=== PATIENT | male | born 1965 | race Caucasian/White ===

== ENCOUNTER → 2022-05-11 15:10 | Outpatient (CLI) | payer BC, SELFPAY ==
--- NOTE | ~2022-05-11 | US_ITS ---
EXAMINATION: US thyroid DATE: 05/11/2022 15:21 INDICATION: Nontoxic goiter. TECHNIQUE: Multiple ultrasound images of the thyroid were obtained. COMPARISON: None. FINDINGS: The right thyroid lobe measures 5.7 x 2.3 x 1.5 cm. The left thyroid lobe measures 5.5 x 2.1 x 1.5 c m. There is normal echotexture and echogenicity throughout the thyroid gland. No discrete nodules id entified. Normal vascular flow is present. IMPRESSION: Normal thyroid ultrasound findings. Reviewed, dictated and finalized at location K.
== END ==
PROVIDERS: Visit Provider Physician Assistant Medical
DX: E04.9 Nontoxic goiter, unspecified (principal)
CPT/HCPCS: 76536

== ENCOUNTER 2022-08-30 13:26 | Emergency (ER) | payer BC, SELFPAY ==
[2022-08-30 14:30] VITALS: BP 151/78; PULSE 68; RESP 18; TEMP 36.2; O2SAT 99
--- NOTE | 2022-08-30 15:12 | ED.EAR ---
HPI - Ear Problem General Chief complaint: Ear Stated complaint: Left Ear Irritation Time Seen by Provider: 08/30/22 15:12 Source: patient Mode of arrival: ambulatory Limitations: no limitations History of Present Illness HPI Narrative: 49-year-old male presented for concern of bilateral ear wax impaction. He endorses muffled hearing bilaterally. He denies tinnitus, dizziness, nausea, fevers or chills. Denies recent upper respiratory illness. He endorses recurrent excessive earwax buildup and has removal about every 6 months. MD Complaint: ear pain Related Data Allergies Allergy/AdvReac Type Severity Reaction Status Date / Time No Known Allergies Allergy Verified 08/30/22 14:25 Review of Systems Review of Systems: CONSTITUTIONAL: Denies malaise, chills, or fever. EYES: Denies visual changes, redness, or discharge. ENT: Denies rhinorrhea, congestion, sinus pain, and sore throat. CARDIOVASCULAR: Denies chest pain, palpitations, or edema. RESPIRATORY: Denies cough or dyspnea. GASTROINTESTINAL: Denies abdominal pain, nausea, vomiting, diarrhea SKIN: Denies rash or itching. MUSCULOSKELETAL: Denies myalgia. NEUROLOGIC: Denies headache. All systems reviewed & are unremarkable except as noted in HPI and below PMFSH Past Medical History Medical History BMI 32.0-32.9,adult Essential (primary) hypertension Screening for lipid disorders Screening for prostate cancer Surgical History Surgical History History of total left hip replacement Family History Family History Father Hypertension Malignant neoplasm of prostate Mother Hypertension Sibling Hypertension Social History Social History Smoking status: Never smoker Alcohol intake: current Comments At time of signature, agree with nursing past medical, surgical, social and family history. There is no relevant family history pertinent to the presenting complaint Exam Narrative: GENERAL: Well-appearing EYES: conjunctivae clear ENT: Nares clear. Mucous membranes moist. Unable to visualize TMs due to impacted cerumen bilaterally; no tragal tenderness. Oropharynx not erythematous without lesions. Tonsils not enlarged and without exudate, no drooling, no hoarseness, no trismus, uvula midline. NECK: Supple. No lymphadenopathy CHEST: Clear to auscultation, breath sounds equal. HEART: Regular rate and rhythm. No murmur heard. SKIN: Warm, dry, no rash. NEURO: Alert and oriented x3. PSYCH: Normal mood and affect Course Course Emergency Course: Patient is aware of diagnosis, understands and agrees to treatment plan. Anticipatory guidance given. Patient agrees to follow-up as directed and is aware of reasons to seek care at the emergency department. Portions of this record may have been created with voice recognition software Level of Care: Express Care Visit Vital Signs Vital signs: Vital Signs Temperature 97.1 F L 08/30/22 14:30 Pulse Rate 68 08/30/22 14:30 Respiratory Rate 18 08/30/22 14:30 Blood Pressure 151/78 H 08/30/22 14:30 Pulse Oximetry 99 08/30/22 14:30 Oxygen Delivery Room Air 08/30/22 14:30 Temperature 97.1 F L 08/30/22 14:30 Pulse Rate 68 08/30/22 14:30 Respiratory Rate 18 08/30/22 14:30 Blood Pressure 151/78 H 08/30/22 14:30 Pulse Oximetry 99 08/30/22 14:30 Oxygen Delivery Room Air 08/30/22 14:30 Reviewed Procedures Ear Wax Removal Both Ears: Ear Wax Removal Date: 08/30/22 Cerumenolytic Used: other (Equal parts hydrogen peroxide and warm water) Results: Re-examined: cerumen removed completely (Right) and some cerumen remains (Left) TM Examination: TM(s) intact, normal appearance (Right) Ear Canal Exam: atraumatic (bilaterally) Yanelis
== END 2022-08-30 15:48 | disposition home or self-care (01) ==
PROVIDERS: Emergency Provider Nurse Practitioner Family; PCP Family Medicine
DX: H61.23 Impacted cerumen, bilateral (principal); I10 Essential (primary) hypertension; Z96.642 Presence of left artificial hip joint
CPT/HCPCS: 69210; 99212; A9270; G0463

== ENCOUNTER 2023-05-09 10:11 | Emergency (ER) | payer BC, SELFPAY ==
[2023-05-09 10:18] VITALS: BP 143/76; PULSE 82; RESP 16; TEMP 37.1; O2SAT 98
--- NOTE | 2023-05-09 10:54 | ED.EAR ---
HPI - Ear Problem General Chief complaint: Ear Stated complaint: Ears Irritation Time Seen by Provider: 05/09/23 10:50 Source: patient, RN notes reviewed and old records reviewed Mode of arrival: ambulatory Limitations: no limitations History of Present Illness HPI Narrative: 58 year old male who presents to [facility] care with complaints of decreased hearing and ears feeling clogged bilaterally for one week duration. Patient reports that he has had problems with ear wax and ears feeling clogged in the past and has had to have ears cleaned out. Patient reports that he has not tried Debrox ear drops to keep wax softened.Patient reports no pain to ears, sinus congestions or any other symptoms of URI. MD Complaint: decreased hearing and other (ears feel clogged) Location: bilateral Duration: constant Discharge from ear: Reports no Treatment prior to arrival: none Related Data Allergies Allergy/AdvReac Type Severity Reaction Status Date / Time No Known Allergies Allergy Verified 05/09/23 10:18 Review of Systems Review of Systems: CONSTITUTIONAL: Denies fever, chills, or sweats. EYES: Denies visual changes, redness, or discharge. ENT: Denies rhinorrhea, congestion, sore throat, or otalgia reports bilateral ears feel clogged with decreased hearing CARDIOVASCULAR: Denies chest pain, palpitations, or edema. RESPIRATORY: Denies cough or dyspnea. GASTROINTESTINAL: Denies abdominal pain, nausea, vomiting, or diarrhea. GENITOURINARY: Denies dysuria or hematuria. SKIN: Denies rash or itching. MUSCULOSKELETAL: Denies back pain, joint pain, or myalgia. NEUROLOGIC: Denies headache, numbness, or weakness. PSYCHIATRIC: Denies anxiety or depression. All systems reviewed & are unremarkable except as noted in HPI and below PMFSH Past Medical History Medical History BMI 32.0-32.9,adult Essential (primary) hypertension Screening for lipid disorders Screening for prostate cancer Surgical History Surgical History History of total left hip replacement Family History Family History Father Hypertension Malignant neoplasm of prostate Mother Hypertension Sibling Hypertension Social History Social History Smoking status: Never smoker Alcohol intake: current Comments At time of signature, agree with nursing past medical, surgical, social and family history. There is no relevant family history pertinent to the presenting complaint Exam Narrative: GENERAL: Well-appearing, well-nourished, and in no acute distress. HEAD: Normocephalic, atraumatic. EYES: PERRLA and EOMI. ENT: Nares clear, no rhinorrhea or epistaxis. Mucous membranes moist.TM's unable to view due to impacted ear wax till ears irrigated with TM's normal, throat pink with no swelling NECK: Supple. no lymphadenopathy CHEST: Clear to auscultation. No respiratory distress. SAO2 98% on room air HEART: Regular rate and rhythm. No murmur heard. Normal peripheral pulses. ABDOMEN: Soft, nontender, nondistended, normal active bowel sounds. EXTREMITIES: Normal range of motion. No edema. SKIN: Warm, dry, no rash. NEURO: No focal deficits. Alert and oriented x3. Course Course Emergency Course: Patient is aware of diagnosis, understands and agrees to treatment plan.? Anticipatory guidance given.? Patient agrees to follow-up as directed and is aware of reasons to seek care at the emergency department. Portions of this record may have been created with voice recognition software Level of Care: Express Care Visit Vital Signs Vital signs: Vital Signs Temperature 37.1 C 05/09/23 10:18 Pulse Rate 82 05/09/23 10:18 Respiratory Rate 16 05/09/23 10:18 Blood Pressure 143/76 H 05/09/23 10:18 Pulse Oximetry 98 05/09/23 10:18 Oxygen Delivery R
== END 2023-05-09 11:10 | disposition home or self-care (01) ==
PROVIDERS: Emergency Provider Registered Nurse; PCP Family Medicine
DX: H61.23 Impacted cerumen, bilateral (principal); I10 Essential (primary) hypertension
CPT/HCPCS: 69209; 99212; A9270; G0463

== ENCOUNTER 2023-09-28 08:05 | Emergency (ER) | payer BC, SELFPAY ==
[2023-09-28 08:17] VITALS: BP 152/83; PULSE 69; RESP 16; TEMP 37.7; O2SAT 99
--- NOTE | 2023-09-28 08:17 | ED.EAR ---
HPI - Ear Problem General Stated complaint: ear issue Time Seen by Provider: 09/28/23 08:17 Source: patient Mode of arrival: ambulatory Limitations: no limitations History of Present Illness HPI Narrative: 58-year-old male presents with complaint of bilateral muffled hearing. Patient reports every 4-6 months he has to be seen to have ears irrigated. Denies pain. All systems reviewed and negative except as noted above. Related Data Allergies Allergy/AdvReac Type Severity Reaction Status Date / Time No Known Allergies Allergy Verified 09/28/23 08:29 Review of Systems Review of Systems: CONSTITUTIONAL: Denies fever, chills, or sweats. EYES: Denies visual changes, redness, or discharge. ENT: Denies rhinorrhea, congestion, sore throat, or otalgia. Reports decreased hearing to bilateral ears. CARDIOVASCULAR: Denies chest pain, palpitations, or edema. RESPIRATORY: Denies cough or dyspnea. GASTROINTESTINAL: Denies abdominal pain, nausea, vomiting, or diarrhea. GENITOURINARY: Denies dysuria or hematuria. SKIN: Denies rash or itching. MUSCULOSKELETAL: Denies back pain, joint pain, or myalgia. NEUROLOGIC: Denies headache, numbness, or weakness. PSYCHIATRIC: Denies anxiety or depression. All other systems reviewed are negative, except as documented in HPI. PMFSH Past Medical History Medical History BMI 32.0-32.9,adult Essential (primary) hypertension Screening for lipid disorders Screening for prostate cancer Surgical History Surgical History History of total left hip replacement Family History Family History Father Hypertension Malignant neoplasm of prostate Mother Hypertension Sibling Hypertension Social History Social History Smoking status: Never smoker Alcohol intake: current Comments At time of signature, agree with nursing past medical, surgical, social and family history. There is no relevant family history pertinent to the presenting complaint. Exam Narrative: GENERAL: This is a well-nourished, well-developed patient, in no apparent distress. HEAD: normocephalic, atraumatic. EYES: PERRL. Sclera clear/white. Vision is grossly intact. EARS: External ears normal, Bilateral ear canals impacted with soft cerumen, normal after irrigation., TMs normal without perforation. Hearing grossly intact. NOSE: External nose normal NECK: Neck supple, non-tender without lymphadenopathy, masses or thyromegaly. CARDIOVASCULAR: Regular rate and rhythm without murmurs, gallops, or rubs. RESPIRATORY: Clear to auscultation. Breath sounds equal bilaterally. No wheezes, rales, or rhonchi. SKIN: warm, Dry, intact with no suspicious lesions or rash, good texture and turgor. NEURO: awake, alert, and oriented to person, place and time. There were no obvious focal neurologic abnormalities. EXTREMITIES: No joint tenderness, effusion, or edema noted. Course Course Level of Care: Express Care Visit Vital Signs Vital signs: Reviewed Procedures Ear Wax Removal Both Ears: Ear Wax Removal Date: 09/28/23 Ear Wax Removal Time: 08:25 Cerumenolytic Used: other (warm water) Results: Re-examined: cerumen removed completely TM Examination: TM(s) intact, normal appearance Ear Canal Exam: atraumatic Patient Tolerated Procedure: well Complications: no problems Technique: ear canal irrigated and ear canal curetted Medical Decision Making MDM Narrative Medical decision making narrative: Patient is aware of diagnosis, understands and agrees to treatment plan. Anticipatory guidance given. Patient agrees to follow-up as directed and is aware of reasons to seek care at the emergency department. Portions of this record may have been crea
== END 2023-09-28 08:49 | disposition home or self-care (01) ==
PROVIDERS: Emergency Provider Nurse Practitioner Family; PCP Family Medicine
DX: H61.23 Impacted cerumen, bilateral (principal); I10 Essential (primary) hypertension
CPT/HCPCS: 69210; 99212; G0463

== ENCOUNTER 2023-10-24 08:02 | Emergency (ER) | payer BC, SELFPAY ==
[2023-10-24 08:19] VITALS: BP 139/81; PULSE 81; RESP 16; TEMP 36.8; O2SAT 97
--- NOTE | 2023-10-24 08:32 | ED.EAR ---
HPI - Ear Problem General Chief complaint: Ear Stated complaint: Right Ear Irritation Source: patient Mode of arrival: ambulatory Limitations: no limitations History of Present Illness HPI Narrative: Patient presents for evaluation of right ear discomfort for the last week. Symptoms started after a flight earlier in the month. He reports muffled hearing on the right side. He denies any tinnitus or drainage from the ear. He has a history of cerumen impaction and is wondering whether his symptoms are related to that. He does not smoke. Related Data Allergies Allergy/AdvReac Type Severity Reaction Status Date / Time No Known Allergies Allergy Verified 10/24/23 08:16 Review of Systems Review of Systems: CONSTITUTIONAL: Denies fever, chills, or sweats. EYES: Denies visual changes, redness, or discharge. ENT: Reports right ear pain and muffled hearing on the right. Denies any tinnitus or drainage from the ears CARDIOVASCULAR: Denies chest pain, palpitations, or edema. RESPIRATORY: Denies cough or dyspnea. GASTROINTESTINAL: Denies abdominal pain, nausea, vomiting, or diarrhea. GENITOURINARY: Denies dysuria or hematuria. SKIN: Denies rash or itching. MUSCULOSKELETAL: Denies back pain, joint pain, or myalgia. NEUROLOGIC: Denies headache, numbness, dizziness, or weakness. PSYCHIATRIC: Denies anxiety or depression. PMFSH Past Medical History Medical History BMI 32.0-32.9,adult Essential (primary) hypertension Screening for lipid disorders Screening for prostate cancer Surgical History Surgical History History of total left hip replacement Family History Family History Father Hypertension Malignant neoplasm of prostate Mother Hypertension Sibling Hypertension Social History Social History Smoking status: Never smoker Alcohol intake: current Substance use: never Gender identity (if verbalized by the patient): Male Sexual Orientation (if Verbalized by the Patient): Straight or Heterosexual Spiritual care concerns: No Exam Narrative: GENERAL: Well-appearing, well-nourished, and in no acute distress. HEAD: Normocephalic, atraumatic. EYES: PERRLA and EOMI. ENT: Nares clear, no rhinorrhea or epistaxis. Mucous membranes moist. Oropharynx without tonsillar hypertrophy exudate or other lesions. Bilateral TMs pearly villalobos nonbulging. there is erythema in the right ear canal. There is also an area of swelling in the right ear canal extending from 4-7 o'clock. NECK: Supple. No adenopathy or masses. No carotid bruits or JVD CHEST: Clear to auscultation. No respiratory distress. No wheezes rales or rhonchi HEART: Regular rate and rhythm. No murmur heard. Normal peripheral pulses. ABDOMEN: Soft, nontender, nondistended, normal active bowel sounds. EXTREMITIES: Normal range of motion. No edema. SKIN: Warm, dry, no rash. NEURO: No focal deficits. Alert and oriented x3. PSYCH: Normal mood and affect. Course Course Emergency Course: This is a 58-year-old male who presented for evaluation of right ear discomfort and muffled hearing. He appears to have a small abscess in the right ear canal. Opted to treat with doxycycline as it would cover for pathogens associated with otitis media as well as many skin pathogens. Will also dc with ofloxacin. He should follow up with ENT. Go to the ER for worsening symptoms. Pt in agreement with plan of care. Level of Care: Express Care Visit Vital Signs Vital signs: Vital Signs Temperature 36.8 C 10/24/23 08:19 Pulse Rate 81 10/24/23 08:19 Respiratory Rate 16 10/24/23 08:19 Blood Pressure 139/81 10/24/23 08:19 Pulse Oximetry 97 10/24/23 08:19 Temperature 36.8 C 10/24/23 08:19 Pulse Rate 81
== END 2023-10-24 08:40 | disposition home or self-care (01) ==
PROVIDERS: Emergency Provider Nurse Practitioner; PCP Family Medicine
DX: H60.01 Abscess of right external ear (principal); I10 Essential (primary) hypertension; Z96.642 Presence of left artificial hip joint
CPT/HCPCS: 99213; G0463

== ENCOUNTER 2024-03-01 18:04 | Emergency (ER) | payer BC, SELFPAY ==
[2024-03-01 18:11] VITALS: BP 133/78; PULSE 58; RESP 14; TEMP 36.6; O2SAT 98
--- NOTE | 2024-03-01 18:54 | ED.EAR ---
HPI - Ear Problem General Chief complaint: Ear Stated complaint: right ear blocked up Time Seen by Provider: 03/01/24 18:05 Source: patient Mode of arrival: ambulatory Limitations: no limitations History of Present Illness HPI Narrative: Pj is a 59-year-old male patient presenting to clinic today with complaints of bilateral cerumen impaction. He feels as though both her ears are clogged up the right greater than the left. Denies any other concerns Related Data Allergies Allergy/AdvReac Type Severity Reaction Status Date / Time No Known Allergies Allergy Verified 10/24/23 08:16 Review of Systems Review of Systems: Pertinent positives per HPI. Patient denies any fever, chills, rash, headache, visual changes, dizziness, cough, runny nose, sore throat, shortness of breath, chest pain, palpitations, nausea, vomiting, diarrhea, constipation, abdominal pain, or any urinary issues. [facility] Past Medical History Medical History BMI 32.0-32.9,adult Essential (primary) hypertension Screening for lipid disorders Screening for prostate cancer Surgical History Surgical History History of total left hip replacement Family History Family History Father Hypertension Malignant neoplasm of prostate Mother Hypertension Sibling Hypertension Social History Social History Smoking status: Never smoker Alcohol intake: current Substance use: never Gender identity (if verbalized by the patient): Male Sexual Orientation (if Verbalized by the Patient): Straight or Heterosexual Spiritual care concerns: No Comments At the time of my signature, I reviewed and agree with the nursing past medical, surgical, social, and family history. There is no relevant family history pertinent to the patient complaint. Course Course Emergency Course: Portions of this record may have been created with voice recognition software. Level of Care: Express Care Visit Vital Signs Vital signs: Vital Signs Temperature 36.6 C 03/01/24 18:11 Pulse Rate 58 L 03/01/24 18:11 Respiratory Rate 14 03/01/24 18:11 Blood Pressure 133/78 03/01/24 18:11 Pulse Oximetry 98 03/01/24 18:11 Oxygen Delivery Room Air 03/01/24 18:11 Temperature 36.6 C 03/01/24 18:11 Pulse Rate 58 L 03/01/24 18:11 Respiratory Rate 14 03/01/24 18:11 Blood Pressure 133/78 03/01/24 18:11 Pulse Oximetry 98 03/01/24 18:11 Oxygen Delivery Room Air 03/01/24 18:11 Vital signs reviewed Procedures Ear Wax Removal Both Ears: Ear Wax Removal Date: 03/01/24 Results: Re-examined: cerumen removed completely TM Examination: TM(s) intact, normal appearance Ear Canal Exam: atraumatic Patient Tolerated Procedure: well and no complications Complications: no problems Technique: ear canal irrigated and ear canal curetted Additional Comments: Verbal consent obtained for ear lavage. Risk and benefits explained to patient and they voiced understanding. A mixture of half warm water and half peroxide was used to irrigate ear canals. An lighted ear curette was then used to remove the cerumen from the outer external canal of ears. Cerumen was successfully removed from ear canals. Patient tolerated well. Medical Decision Making Vital Signs Vital Signs: Vital Signs Temperature 36.6 C 03/01/24 18:11 Pulse Rate 58 L 03/01/24 18:11 Respiratory Rate 14 03/01/24 18:11 Blood Pressure 133/78 03/01/24 18:11 Pulse Oximetry 98 03/01/24 18:11 Oxygen Delivery Room Air 03/01/24 18:11 Temperature 36.6 C 03/01/24 18:11 Pulse Rate 58 L 03/01/24 18:11 Respiratory Rate 14 03/01/24 18:11 Blood Pressure 133/78 03/01/24 18:11 Pulse Oximetry 98
== END 2024-03-01 19:00 | disposition home or self-care (01) ==
PROVIDERS: Emergency Provider Nurse Practitioner Family; PCP Family Medicine
DX: H61.23 Impacted cerumen, bilateral (principal); I10 Essential (primary) hypertension
CPT/HCPCS: 69210; 99212; G0463

== ENCOUNTER 2024-07-31 17:33 | Emergency (ER) | payer BC, SELFPAY ==
[2024-07-31 17:42] VITALS: BP 131/76; PULSE 75; RESP 16; TEMP 36.6; O2SAT 98
--- NOTE | 2024-07-31 17:45 | ED_ITS ---
HPI - Ear Problem General Chief complaint: Ear Stated complaint: ears feel blocked Time Seen by Provider: 07/31/24 17:37 Source: patient Mode of arrival: ambulatory Limitations: no limitations History of Present Illness HPI Narrative: Patient is a 59 year old male who presents with bilateral ear fullness, right worse than left. Patient states he normally has to get his ears cleaned out every 6 months. Denies any congestion, sore throat, cough. States he does not use ear buds, hearing aids or Q-tips. MD Complaint: ear pain Related Data Allergies Allergy/AdvReac Type Severity Reaction Status Date / Time No Known Allergies Allergy Verified 07/31/24 17:42 Review of Systems Review of Systems: All systems reviewed & are unremarkable except as noted in HPI and below Constitutional: Constitutional: Denies body ache(s), Denies chills, Denies fever(s), Denies headache(s) and Denies malaise Eyes: Eyes: Denies blurry vision, Denies eye discharge and Denies irritation ENT: Reports otalgia, Denies headache(s), Denies nasal congestion, Denies nasal discharge and Denies sore throat Cardiovascular: Cardiovascular: Denies chest pain, Denies edema, Denies palpitations and Denies dyspnea on exertion Respiratory: Respiratory: Denies cough and Denies dyspnea on exertion Gastrointestinal: Gastrointestinal: Denies abdominal pain, Denies diarrhea, Denies nausea and Denies vomiting Musculoskeletal: Musculoskeletal: Denies back pain, Denies arthralgias and Denies muscle weakness Integumentary/Breasts: Skin/Breast: Denies pruritus and Denies rash Neurologic: Denies headache(s) Psychiatric: Psychiatric: Reports no additional psychiatric complaints Endocrine: Endocrine: Denies palpitations PMFSH Past Medical History Medical History BMI 32.0-32.9,adult Essential (primary) hypertension Screening for colon cancer Screening for lipid disorders Screening for prostate cancer Surgical History Surgical History History of total left hip replacement Family History Family History Father Hypertension Malignant neoplasm of prostate Mother Hypertension Sibling Hypertension Social History Social History Smoking status: Never smoker Alcohol intake: current Drinks per week: 6 Alcohol use details: DRINKS Substance use: never Substance use type: does not use Do You Feel Safe in your Home?: Yes Lack of Transportation: No Lack of Food: Never True Current Housing: I Have Housing Concerned About Future Housing: No Difficulty Paying Gas/Electric Bills: No Difficulty Paying for Meds: No Currently Unemployed: No Difficulty w/ Childcare or Family Care: No Living arrangements: with family Gender identity (if verbalized by the patient): Male Sexual Orientation (if Verbalized by the Patient): Straight or Heterosexual Spiritual care concerns: No Comments At time of signature, agree with nursing past medical, surgical, social and family history. There is no relevant family history pertinent to the presenting complaint? Exam Const: General: cooperative, healthy appearing, no acute distress and well nourished Nutritional Appearance: well nourished Orientation/consciou sness: patient oriented x3 Limitations: no limitations HENMT: Head: normal to inspection, normocephalic and atraumatic Ears: hearing grossly normal bilaterally, EAC's normal, no periauricular adenopathy and TM abnormal obstructed by cerumen bilateral Face/Nose/Sinus: Normal external nose present, Normal nares present, Normal nasal mucous membranes and turbinates present, No nasal discharge present, normal facial exam and sinuses nontender Face and sinus: normal facial exam and sinuses nontender Mouth: Yes Normal oral and palatal mucosa present, Yes lip normal, Yes tongue normal and Yes moist mucous membranes Throat: posterior oropharynx normal, tonsils normal and uvula midline Eyes: General: appearance normal, both eyes and all related structures Alignment and Position: alignment normal and position normal Eyelids: eyelids normal Pupils: Equal, round and reactive pupils present EOM: EOMs intact bilaterally Neck: Neck: normal visual inspection, full ROM, no lymphadenopathy and supple Chest: Chest palpation & inspection: normal inspection of the chest Resp: Effort & Inspection: normal respiratory effort and able to speak in complete sentences Auscultation: clear to auscultation bilaterally, no crackles, no rales, no rhonchi and no wheezes Cardio: Rate: regular rate Rhythm: regular rhythm Heart sounds: S1 normal heart sound present and S2 normal heart sound present Skin: General skin exam: normal color and no rashes or lesions noted Neuro: General: patient oriented x3 and moves all extremities Cranial nerves: Yes Equal, round and reactive pupils present Cognition (Neuro): normal cognition Speech: normal speech Gait exam (Neuro): Normal gait present Extrem: General: normal to inspection and full ROM Psych: Appearance: grossly normal and well kempt Mental Status: mental status grossly normal Speech and movement: Normal speech and movement present Course Course Emergency Course: Patient is aware of diagnosis, understands and agrees to treatment plan.? Anticipatory guidance given.? Patient agrees to follow-up as directed and is aware of reasons to seek care at the emergency department.? Portions of this record may have been created with voice recognition software? Level of Care: Express Care Visit Vital Signs Vital signs: Vital Signs Temperature 36.6 C 07/31/24 17:42 Pulse Rate 75 07/31/24 17:42 Respiratory Rate 16 07/31/24 17:42 Blood Pressure 131/76 07/31/24 17:42 Pulse Oximetry 98 07/31/24 17:42 Temperature 36.6 C 07/31/24 17:42 Pulse Rate 75 07/31/24 17:42 Respiratory Rate 16 07/31/24 17:42 Blood Pressure 131/76 07/31/24 17:42 Pulse Oximetry 98 07/31/24 17:42 Reviewed Procedures Ear Wax Removal Both Ears: Ear Wax Removal Date: 07/31/24 Ear Wax Removal Time: 18:00 Results: Re-examined: cerumen removed completely TM Examination: TM(s) intact, normal appearance Ear Canal Exam: atraumatic Patient Tolerated Procedure: well and no complications Complications: no problems and pain Technique: ear canal irrigated and ear canal curetted Additional Comments: Procedure explained to patient. Verbal consent obtained. Large amounts of wax removed. Non remain. Ear canal irritated but no drainage. Medical Decision Making MDM Narrative Medical decision making narrative: Discharge instructions reviewed with patient, as well as provided in writing per nursing staff. The instructions also include specific and strict return/GO TO THE ER as well as f/u information. All questions have been answered, and the patient deny any further questions with discharge and discharge plan. Differential diagnosis considered: Olguin virus, strep pharyngitis, allergic rhinitis, upper respiratory tract infection, sinusitis, rhinosinusitis, nasopharyngitis. viral pharyngitis, otitis media, otitis externa, otitis effusion, foreign body, cerumen impaction, viral syndrome, and influenza.? Exam findings show no acute concerns or changes; patient is non-toxic appearing and is in no distress.? Patient is appropriate for outpatient treatment and follow- up.? Medical Records Medical records reviewed: Yes I reviewed the external patient's medical records. Vital Signs Vital Signs: Vital Signs Temperature 36.6 C 07/31/24 17:42 Pulse Rate 75 07/31/24 17:42 Respiratory Rate 16 07/31/24 17:42 Blood Pressure 131/76 07/31/24 17:42 Pulse Oximetry 98 07/31/24 17:42 Temperature 36.6 C 07/31/24 17:42 Pulse Rate 75 07/31/24 17:42 Respiratory Rate 16 07/31/24 17:42 Blood Pressure 131/76 07/31/24 17:42 Pulse Oximetry 98 07/31/24 17:42 Discharge Plan Discharge Clinical Impression: Cerumen impaction Qualifiers: Laterality: bilateral Qualified Code(s): H61.23 - Impacted cerumen, bilateral Otitis externa Qualifiers: Otitis externa type: unspecified type Chronicity: acute Laterality: bilateral Qualified Code(s): H60.503 - Unspecified acute noninfective otitis externa, bilateral Patient Disposition: Home, Self-Care Condition: Stable Instructions: Carbamide Peroxide (Into the ear), Swimmer's Ear (GEN) Additional Instructions: -Ear drops as directed for 7-10 days until the pain and swelling are gone. -When administer drug into the affected ear; make sure to lay down with the affected ear facing upward, message the ear canal to help the drops reach the medial end of the canal, then remain in that position for at least 5 minutes. -Avoid using cotton tipped applicator for ears cleaning -Avoid exposing swimming or exposing the affected ear to water during the treatment period Take or alternate tylenol or ibuprofen every 4 - 6 hours if needed for pain. Follow up with primary care provider if condition is not improving in 7 days or sooner if there is new concern. Prescriptions: New ofloxacin 0.3 % drops 5 drp EACH EAR Q12H 7 Days Qty: 10 0RF No Action lisinopril-hydrochlorothiazide 20-12.5 mg tablet 1 tablet PO DAILY Qty: 90 3RF rosuvastatin 20 mg tablet 20 mg PO DAILY Qty: 90 1RF Follow-up/Referrals: Kal Clay MD [Primary Care Provider] - 3 Days Time of Disposition: 18:11
== END 2024-07-31 18:12 | disposition home or self-care (01) ==
PROVIDERS: Emergency Provider Nurse Practitioner Family; PCP Family Medicine
DX: H61.23 Impacted cerumen, bilateral (principal); H60.503 Unspecified acute noninfective otitis externa, bilateral; I10 Essential (primary) hypertension; Z96.642 Presence of left artificial hip joint
CPT/HCPCS: 69210; 99213; G0463

== ENCOUNTER 2024-08-07 01:41 | Day surgery (SDC) | payer BC, SELFPAY ==
[2024-07-28 11:34] VITALS: BMI 32.2
[2024-08-07 07:47] VITALS: BP 149/76; PULSE 72; RESP 18; TEMP 35.9; O2SAT 99; BMI 31.4
[2024-08-07] MEDS: LACTATED RINGERS 1,000 ML 150 ML IV CONT (08:03)
--- NOTE | 2024-08-07 08:08 | P.PNAN_ITS ---
Anes - Initial Pre Proc Eval Procedure: Operation Date: 08/07/24 09:00 Proposed Procedures p Screening Colonoscopy - Avila Deleon DO Date/Time: 08/07/24 08:08 Surgeon: Avila Deleon DO Pre Op Diagnosis: Screening for malignant neoplasm of colon Patient Data Age: 59 Gender: M Height: 1.75 m Weight: 96.7 kg Last Vital Signs Temp 35.9 C L 08/07/24 07:47 Pulse 72 08/07/24 07:47 Resp 18 08/07/24 07:47 BP 149/76 H 08/07/24 07:47 Pulse Ox 99 08/07/24 07:47 O2 Del Method Room Air 08/07/24 07:47 Allergies Allergy/AdvReac Type Severity Reaction Status Date / Time No Known Allergies Allergy Verified 08/07/24 07:53 Home Medications Medication Instructions Recorded Confirmed Type lisinopril 20 1 tablet PO DAILY #90 tabs 05/23/24 08/07/24 Rx mg-hydrochlorothiazide 12.5 mg tablet rosuvastatin 20 mg tablet 20 mg PO DAILY #90 tabs 05/23/24 08/07/24 Rx ofloxacin 0.3 % ear drops 5 drp EACH EAR Q12H 7 days #10 mL 07/31/24 08/07/24 Rx Patient hx anesthesia problems: none Family hx anesthesia problems: none Results Review: All pre-operative results and documents have been reviewed as part of the pre- operative evaluation. REPLACED BY [facility] Past Medical History Medical History BMI 32.0-32.9,adult Essential (primary) hypertension Screening for colon cancer Screening for lipid disorders Screening for prostate cancer Surgical History Surgical History History of total left hip replacement Family History Family History Father Hypertension Malignant neoplasm of prostate Mother Hypertension Sibling Hypertension Social History Social History Smoking status: Never smoker Alcohol intake: current Drinks per week: 6 Alcohol use details: DRINKS Substance use: never Substance use type: does not use Do You Feel Safe in your Home?: Yes Lack of Transportation: No Lack of Food: Never True Current Housing: I Have Housing Concerned About Future Housing: No Difficulty Paying Gas/Electric Bills: No Difficulty Paying for Meds: No Currently Unemployed: No Difficulty w/ Childcare or Family Care: No Living arrangements: with family Gender identity (if verbalized by the patient): Male Sexual Orientation (if Verbalized by the Patient): Straight or Heterosexual Spiritual care concerns: No Anes - Eval Final PreProcedure Day of Procedure 08/07/24 08:08 Patient weight: obese Heart: regular rate and rhythm Lungs: clear to auscultation Airway: Mallampati scale class II Neurological: alert and oriented Last oral intake: >/= 8 hours ASA classification: III Emergent: no Anesthetic plan: proceed Anesthesia type and monitoring: general GIVS and standard monitoring Results Review: All pre-operative results and documents have been reviewed as part of the pre- operative evaluation. Informed Consent: The patient's anesthetic plan and its attendant risks and benefits were discussed with the patient/family/POA. Questions were solicited and answers provided to the satisfaction of the patient/family/POA.
--- NOTE | 2024-08-07 08:27 | PM.IMHP ---
H&P: HPI History of Present Illness Date/Time: 08/07/24 08:27 Chief Complaint: Screening for colorectal cancer Narrative: This is a 59-year-old man who presents for colonoscopy. His last colonoscopy was 10 years ago and was normal. He denies any hematochezia or melena. He denies any family history of colon cancer. Review of Systems Review of Systems: All systems reviewed & are unremarkable except as noted in HPI and below Constitutional: Constitutional: Denies chills, Denies fever(s), Denies headache(s) and Denies weight loss Eyes: Eyes: Denies change in vision ENT: Denies dizziness, Denies headache(s), Denies neck mass and Denies throat swelling Cardiovascular: Cardiovascular: Denies chest pain, Denies lightheadedness and Denies dyspnea Respiratory: Respiratory: Denies cough, Denies dyspnea and Denies wheezing Gastrointestinal: Gastrointestinal: Denies abdominal pain, Denies change in bowel habits, Denies nausea and Denies vomiting Genitourinary: Genitourinary: Denies hematuria and Denies dysuria Musculoskeletal: Musculoskeletal: Reports as per HPI Integumentary/Breasts: Skin/Breast: Reports as per HPI Neurologic: Denies dizziness and Denies headache(s) Allergic/Immunologic: Allergic/Immunologic: Denies throat swelling and Denies wheezing [facility] Past Medical History Medical History BMI 32.0-32.9,adult Essential (primary) hypertension Screening for colon cancer Screening for lipid disorders Screening for prostate cancer Surgical History Surgical History History of total left hip replacement Family History Family History Father Hypertension Malignant neoplasm of prostate Mother Hypertension Sibling Hypertension Social History Social History Smoking status: Never smoker Alcohol intake: current Drinks per week: 6 Alcohol use details: DRINKS Substance use: never Substance use type: does not use Do You Feel Safe in your Home?: Yes Lack of Transportation: No Lack of Food: Never True Current Housing: I Have Housing Concerned About Future Housing: No Difficulty Paying Gas/Electric Bills: No Difficulty Paying for Meds: No Currently Unemployed: No Difficulty w/ Childcare or Family Care: No Living arrangements: with family Gender identity (if verbalized by the patient): Male Sexual Orientation (if Verbalized by the Patient): Straight or Heterosexual Spiritual care concerns: No Meds Home Medications and Allergies Home Medications Medication Instructions Recorded Confirmed Type lisinopril 20 1 tablet PO DAILY #90 tabs 05/23/24 08/07/24 Rx mg-hydrochlorothiazide 12.5 mg tablet rosuvastatin 20 mg tablet 20 mg PO DAILY #90 tabs 05/23/24 08/07/24 Rx ofloxacin 0.3 % ear drops 5 drp EACH EAR Q12H 7 days #10 mL 07/31/24 08/07/24 Rx Allergies Allergy/AdvReac Type Severity Reaction Status Date / Time No Known Allergies Allergy Verified 08/07/24 07:53 Vital Signs Vital Signs - 24 hr 08/07/24 07:47 Temperature 96.6 F L Pulse Rate 72 Respiratory Rate 18 Blood Pressure 149/76 H Pulse Oximetry 99 Oxygen Delivery Room Air Exam Const: General: no acute distress and alert Orientation/consciousness: patient oriented x3 HENMT: Head: normocephalic and atraumatic Ears: hearing grossly normal bilaterally Face/Nose/Sinus: Normal nares present Mouth: Yes Normal oral and palatal mucosa present Eyes: Periorbital: periorbital findings normal Sclera: sclerae normal EOM: EOMs intact bilaterally Neck: Neck: normal visual inspection, no lymphadenopathy and trachea midline Chest: Chest palpation & inspection: normal inspection of the chest Resp: Effort & Inspection: normal respiratory effort Auscultation: clear to auscultation bilaterally Cardio: Jugular venous distension: no JVD Rate: regular rate Rhythm: regular rhythm Heart sounds: S1 normal heart sound present and S2 normal heart sound present Peripheral pulses: Peripheral pulses 2+ throughout GI: Inspection: normal to inspection GI Palp: Yes Soft to palpation, No Tenderness to palpation present (GI), No Guarding due to palpation present (GI) and No Rebound tenderness present Percussion: Yes normal to percussion Auscultation: normal bowel sounds : General: Yes no CVA tenderness Back/Spine/Pelvis: Back: no CVA tenderness Neuro: General: patient oriented x3, no focal motor deficits and CN's II-XI intact bilaterally Cognition (Neuro): normal cognition Speech: normal speech Motor exam (neuro): 5/5 motor strength present throughout Extrem: General: capillary refill normal and no clubbing, cyanosis or edema Assessment and Plan Assessment and plan (1) Screening for colon cancer: Code(s): Z12.11 - Encounter for screening for malignant neoplasm of colon Status: Acute Assessment and Plan: I have recommended colonoscopy. I have discussed the procedure, risks, benefits, and alternatives. Questions were answered. Patient is agreeable to proceed.
[2024-08-07 08:41] VITALS: BP 108/71; PULSE 66; RESP 18; O2SAT 98
[2024-08-07 08:51] VITALS: BP 120/74; PULSE 60; RESP 18; O2SAT 97
[2024-08-07 09:01] VITALS: BP 129/77; PULSE 60; RESP 18; O2SAT 100
== END 2024-08-07 09:10 | disposition home or self-care (01) ==
PROVIDERS: PCP Family Medicine; Visit Provider Surgery
PROC: 0DJD8ZZ Inspection of Lower Intestinal Tract, Via Natural or Artificial Opening Endoscopic (ICD-10-PCS; CPT 45378; principal; 2024-08-07 09:00)
DX: Z12.11 Encounter for screening for malignant neoplasm of colon (principal); K64.8 Other hemorrhoids; K57.30 Diverticulosis of large intestine without perforation or abscess without bleeding; I10 Essential (primary) hypertension; E66.9 Obesity, unspecified; Z68.31 Body mass index [BMI] 31.0-31.9, adult; Z98.890 Other specified postprocedural states; Z80.42 Family history of malignant neoplasm of prostate
CPT/HCPCS: 45378; J2003; J2704; J7120

== ENCOUNTER 2024-12-10 08:29 | Emergency (ER) | payer BC, SELFPAY ==
[2024-12-10 08:41] VITALS: BP 136/83; PULSE 72; RESP 16; TEMP 37.2; O2SAT 100
--- NOTE | 2024-12-10 08:46 | ED_ITS ---
HPI - Ear Problem General Chief complaint: Ear Stated complaint: both ears irrigation Time Seen by Provider: 12/10/24 08:47 Source: patient, RN notes reviewed and old records reviewed Mode of arrival: ambulatory Limitations: no limitations History of Present Illness HPI Narrative: 5-year-old male presents to the [facility] just to have his ears irrigated, ear wax cleaned out. Decreased hearing. States that he comes in every 6 months. Related Data Allergies Allergy/AdvReac Type Severity Reaction Status Date / Time No Known Allergies Allergy Verified 08/07/24 07:53 Review of Systems Review of Systems: All systems reviewed & are unremarkable except as noted in HPI and below Constitutional: Constitutional: Reports no additional constitutional complaints ENT: Reports as per HPI Cardiovascular: Cardiovascular: Reports no additional cardiovascular complaints, Denies chest pain and Denies dyspnea Respiratory: Respiratory: Reports no additional respiratory complaints, Denies chest congestion, Denies cough and Denies dyspnea Musculoskeletal: Musculoskeletal: Reports no additional musculoskeletal complaints Integumentary/Breasts: Skin/Breast: Reports system reviewed and no additional complaints, except as docu PMFSH Past Medical History Medical History Screening for colon cancer BMI 32.0-32.9,adult Screening for prostate cancer Screening for lipid disorders Essential (primary) hypertension Surgical History Surgical History History of total left hip replacement Family History Family History Father Hypertension Malignant neoplasm of prostate Mother Hypertension Sibling Hypertension Social History Social History Smoking status: Never smoker Alcohol intake: current Drinks per week: 6 Alcohol use details: DRINKS Substance use: never Substance use type: does not use Do You Feel Safe in your Home?: Yes Lack of Transportation: No Lack of Food: Never True Current Housing: I Have Housing Concerned About Future Housing: No Difficulty Paying Gas/Electric Bills: No Difficulty Paying for Meds: No Currently Unemployed: No Difficulty w/ Childcare or Family Care: No Living arrangements: with family Gender identity (if verbalized by the patient): Male Sexual Orientation (if Verbalized by the Patient): Straight or Heterosexual Spiritual care concerns: No Comments At the time of my signature, I reviewed and agree with the nursing past medical, surgical, social, and family history. There is no relevant family history pertinent to the patient complaint. Exam Const: General: cooperative, healthy appearing, comfortable, no acute distress, well developed, alert and well nourished Nutritional Appearance: well nourished Orientation/consciousness: patient oriented x3 Limitations: no limitations HENMT: Head: normal to inspection Ears: external ears normal, mastoids normal, no periauricular adenopathy, Abnormal EAC present cerumen impaction and unable to visualize TM Mouth: Yes Normal oral and palatal mucosa present, Yes lip normal, Yes tongue normal and Yes moist mucous membranes Eyes: General: appearance normal, both eyes and all related structures Alignment and Position: alignment normal Neck: Neck: normal visual inspection, full ROM, no lymphadenopathy and no meningeal signs Chest: Chest palpation & inspection: normal inspection of the chest Resp: Effort & Inspection: normal respiratory effort and able to speak in co mplete sentences Cardio: Rate: regular rate Skin: General skin exam: normal color and no rashes or lesions noted Neuro: General: patient oriented x3, gait normal, moves all extremities and no meningeal signs Cognition (Neuro): normal cognition Speech: normal speech Gait exam (Neuro): Normal gait present Extrem: General: normal to inspection, full ROM, capillary refill normal and normal gait Psych: Appearance: grossly normal and well kempt Mental Status: mental status grossly normal Speech and movement: Normal speech and movement present and Clear speech present Affect: normal affect Attitude: cooperative Course Course Level of Care: Express Care Visit Vital Signs Vital signs: Vital Signs Temperature 98.9 F 12/10/24 08:41 Pulse Rate 72 12/10/24 08:41 Respiratory Rate 16 12/10/24 08:41 Blood Pressure 136/83 12/10/24 08:41 Pulse Oximetry 100 12/10/24 08:41 Oxygen Delivery Room Air 12/10/24 08:41 Temperature 98.9 F 12/10/24 08:41 Pulse Rate 72 12/10/24 08:41 Respiratory Rate 16 12/10/24 08:41 Blood Pressure 136/83 12/10/24 08:41 Pulse Oximetry 100 12/10/24 08:41 Oxygen Delivery Room Air 12/10/24 08:41 Reviewed Procedures Ear Wax Removal Both Ears: Ear Wax Removal Date: 12/10/24 Ear Wax Removal Time: 08:53 Cerumenolytic Used: other (Peroxide water) Results: Re-examined: cerumen removed completely TM Examination: TM(s) intact, normal appearance Ear Canal Exam: atraumatic Patient Tolerated Procedure: well Complications: no problems Technique: ear canal irrigated and ear canal curetted Medical Decision Making MDM Narrative Medical decision making narrative: Patient sitting comfortably in exam room. Nontoxic, vitals stable. Patient in no acute distress Patient presents to have his ears cleaned out. Has had decreased hearing. States that he comes in every 6 months just have his ears cleaned. Discharge instructions reviewed with patient, as well as provided in writing per nursing staff. The instructions also include specific and strict return/GO TO THE ER as well as f/u information. All questions have been answered, and the patient deny any further questions with discharge and discharge plan. Some parts of this dictation were generated by voice recognition software and may contain typographical and/or grammatical inaccuracies. Differential Diagnosis Differential Diagnosis: Ear wax impaction Medical Records Medical records reviewed: Yes I reviewed the external patient's medical records. Vital Signs Vital Signs: Vital Signs Temperature 98.9 F 12/10/24 08:41 Pulse Rate 72 12/10/24 08:41 Respiratory Rate 16 12/10/24 08:41 Blood Pressure 136/83 12/10/24 08:41 Pulse Oximetry 100 12/10/24 08:41 Oxygen Delivery Room Air 12/10/24 08:41 Temperature 98.9 F 12/10/24 08:41 Pulse Rate 72 12/10/24 08:41 Respiratory Rate 16 12/10/24 08:41 Blood Pressure 136/83 12/10/24 08:41 Pulse Oximetry 100 12/10/24 08:41 Oxygen Delivery Room Air 12/10/24 08:41 Reviewed Lab Data Lab results reviewed: Yes I reviewed the patient's lab results. Labs: Reviewed Critical Care Time Critical Care Time Critical Care Time: No Discharge Plan Discharge Clinical Impression: Bilateral impacted cerumen Patient Disposition: Home, Self-Care Condition: Stable Instructions: Antibiotic Form, Carbamide Peroxide (Into the ear) Additional Instructions: You had Cerumen (EAR wax impaction). Do not use Q-tips or put anything in the ear. This can damage the ear. Instead , use Debrox or ear wax remover. Place 5 drops in ear after a hot shower and place a warm compress over the ear for 20 minutes. alternate doing this every 3-4 days. It will break up the wax gently. Do not use too much pressure. Once you have all of the cerumen out of your ears, you may do preventative treatment to prevent this from happening again. Use 5 drops once weekly after a hot shower. Patient Language: Wolof Prescriptions: No Action ofloxacin 0.3 % drops 5 drp EACH EAR Q12H 7 Days Qty: 10 0RF lisinopril-hydrochlorothiazide 20-12.5 mg tablet 1 tablet PO DAILY Qty: 90 3RF rosuvastatin 20 mg tablet 20 mg PO DAILY Qty: 90 1RF Follow-up/Referrals: Kal Clay MD [Primary Care Provider[facility] Time of Disposition: 09:01
== END 2024-12-10 09:05 | disposition home or self-care (01) ==
PROVIDERS: Emergency Provider Nurse Practitioner; PCP Family Medicine
DX: H61.23 Impacted cerumen, bilateral (principal); I10 Essential (primary) hypertension
CPT/HCPCS: 69210; 99212; G0463